=== PATIENT | male | born 1995 | race Caucasian/White ===

== ENCOUNTER 2024-10-07 18:03 | Emergency (ER) | payer SELFPAY ==
[~2024-10-07] VITALS: Ht 175.3 cm; Wt 82.0 kg
[2024-10-07 18:07] VITALS: O2SAT 100
[2024-10-07 18:42] VITALS: TEMP 36.9
[2024-10-07 20:03] LABS: BASOPHILS % 0.5 % (0.0-2.0); EOSINOPHILS % 0.3 % (0.0-5.0); HEMATOCRIT. 22.6 % (42.0-52.0); LYMPHOCYTES % 24.5 % (20.0-50.0); MEAN CORPUSCULAR HEMOGLOBIN 24.8 pg (28.0-32.0); MEAN CORPUSCULAR VOLUME 79.9 fL (80.0-94.0); MEAN PLATELET VOLUME 6.9 fl (7.4-10.4); MONOCYTES % 6.6 % (2.0-8.0); NEUTROPHILS % 68.1 % (40.0-76.0); PLATELET 898 x1000/uL (130-400); RED BLOOD CELL COUNT 2.83 mill/uL (4.7-6.1); RED CELL DISTRIBUTION WIDTH 23.6 % (11.6-14.6); WHITE BLOOD COUNT 18.1 x1000/uL (4.5-11.0)
[2024-10-07 20:07] LABS: CHLORIDE 100 mEq/L (98-107); POTASSIUM 5.2 mEq/L (3.5-5.1); SODIUM 127 mEq/L (136-145)
[2024-10-07 20:08] LABS: CARBON DIOXIDE 23 mEq/L (21-32)
[2024-10-07 20:09] LABS: ADD RBC MORPHOLOGY YES; CALCIUM 8.2 mg/dL (8.7-10.4); DIFFERENTIAL COMMENT 1
[2024-10-07 20:13] LABS: CREATININE 0.8 mg/dL (0.6-1.3); GLUCOSE 248 mg/dL (70-105); UREA NITROGEN BLOOD 20 mg/dL (9-23)
[2024-10-07 20:46] LABS: ANISOCYTOSIS 2+; HYPOCHROMASIA 1+; MICROCYTOSIS 1+; PLATELET ESTIMATE INCREASED
[2024-10-07 20:58] LABS: ETHANOL BLOOD < 10 mg/dL (<10)
[2024-10-07 23:22] LABS: BASOPHILS % 0.5 % (0.0-2.0); EOSINOPHILS % 1.2 % (0.0-5.0); HEMATOCRIT. 42.4 % (42.0-52.0); HEMOGLOBIN. 14.3 g/dL (14.0-18.0); LYMPHOCYTES % 40.7 % (20.0-50.0); MEAN CORPUSCULAR HEMOGLOBIN 33.1 pg (28.0-32.0); MEAN CORPUSCULAR HGB CONC 33.7 g/dL (31.0-37.0); MEAN CORPUSCULAR VOLUME 98.2 fL (80.0-94.0); MEAN PLATELET VOLUME 8.3 fl (7.4-10.4); MONOCYTES % 6.2 % (2.0-8.0); NEUTROPHILS % 51.4 % (40.0-76.0); PLATELET 218 x1000/uL (130-400); RED BLOOD CELL COUNT 4.32 mill/uL (4.7-6.1); RED CELL DISTRIBUTION WIDTH 15.4 % (11.6-14.6)
[2024-10-07 23:33] LABS: CHLORIDE 110 mEq/L (98-107); POTASSIUM 3.5 mEq/L (3.5-5.1); SODIUM 147 mEq/L (136-145)
[2024-10-07 23:34] LABS: CALCIUM 8.7 mg/dL (8.7-10.4); CARBON DIOXIDE 24 mEq/L (21-32)
[2024-10-07 23:39] LABS: CREATININE 0.7 mg/dL (0.6-1.3); GLUCOSE 86 mg/dL (70-105); UREA NITROGEN BLOOD 10 mg/dL (9-23)
[2024-10-07 23:41] LABS: ALANINE AMINOTRANSFERASE 93 IU/L (10-49); ALBUMIN 4.6 g/dL (3.2-4.8); ASPARTATE AMINOTRANSFERASE 100 IU/L (<34); BILIRUBIN TOTAL 0.3 mg/dL (0.1-1.0); PROTEIN TOTAL 7.3 g/dL (6.0-8.3)
[2024-10-08 00:03] LABS: ETHANOL BLOOD 467 mg/dL (<10)
[2024-10-08] MEDS ORDERED: ONDANSETRON HCL 4MG/2ML INJ IV PRN (00:45)
[2024-10-08] MEDS ORDERED: CLONIDINE 0.1MG TABLET PO PRN (00:45)
[2024-10-08] MEDS ORDERED: ACETAMINOPHEN 325MG TABLET PO PRN (00:45)
[2024-10-08] MEDS ORDERED: IPRATROPIUM/ALBUTEROL 0.5-3(2.5)MG/3ML NEB HHN PRN (00:45)
[2024-10-08] MEDS ORDERED: MAGNESIUM/ALUMINUM HYDROXIDE/SIMETHICONE 30ML UDC PO PRN (00:45)
[2024-10-08] MEDS ORDERED: PANTOPRAZOLE SODIUM 40 MG/VIAL IV SCH (00:45)
[2024-10-08] MEDS ORDERED: LORAZEPAM 2MG/ML INJ IV PRN ×2 (00:45)
[2024-10-08 01:30] VITALS: BP 122/77; PULSE 103; RESP 12; O2SAT 82
[2024-10-08] MEDS ORDERED: MVI, ADULT NO.1 10 ML, FOLIC ACID 1 MG, THIAMINE HCL 100 MG in SODIUM CHLORIDE 0.9% 1,0... IV SCH (02:00)
[2024-10-08] MEDS ORDERED: CHLORDIAZEPOXIDE 25MG CAPSULE PO SCH (06:00)
[2024-10-08] MEDS ORDERED: THIAMINE HCL 100MG TABLET PO SCH (09:00)
== END 2024-10-08 01:50 | disposition home or self-care (01) ==
LOC: ER 18:03 → EDBEDREQ 18:47 → EDBEDREQTM 18:47 → EDBEDREQ 18:48 → EDBEDREQTM 10-08 00:12 → EDBEDREQDT 10-08 00:12 → EDBEDREQ 10-08 00:12 → CANBEDREQ 10-08 01:50 → ER 10-08 01:50
DX: F10.129 Alcohol abuse with intoxication, unspecified (principal); R40.4 Transient alteration of awareness; Y90.8 Blood alcohol level of 240 mg/100 ml or more
CPT/HCPCS: 36415; 80048; 80053; 80320; 85025; 86850; 86900; 93005; 99285; J3411; J3490; J7030; G0480